=== PATIENT | female | born 1960 | race Caucasian/White ===

== ENCOUNTER 2019-11-16 02:06 | Emergency (ER) | payer SELFPAY ==
--- NOTE | 2019-11-16 02:31 | EDM.PDOC ---
ED HPI GENERAL MEDICAL PROBLEM - General Chief Complaint: Abdominal Pain Stated Complaint: RUQ PAIN Time Seen by Provider: 11/16/19 02:20 Source of Information: Reports: Patient, RN, RN Notes Reviewed History Limitations: Reports: No Limitations - History of Present Illness INITIAL COMMENTS - FREE TEXT/NARRATIVE: Patient presents to ER with c/o severe abdominal pain. Patient states she has had gallbladder problems for the past 10 years. Patient reported to nursing staff that she was told by a chiropractor that she had gallbladder issues. She has been using a 'home remedy" for gallstones: lemon juice, olive oil, and coke mixed together and drank, followed by mag citrate. Patient states she took all of these things and has not been able to have a bowel movement. States she began vomiting about 6pm. States the pain in her stomach as been progressively getting worse. Patient states she has had a hernia surgery in the past. States she currently takes lisinopril, levothyroxine, and propranolol. Patient states she has been doctoring for her high blood pressure. Patient admits to chills and hot flashes, N/V. Denies diarrhea. Patient states difficult to take a deep breath due to the pain. Onset: Today Abdominal Pain Pain Score (Numeric/FACES): 9 - Related Data Allergies Allergy/AdvReac Type Severity Reaction Status Date / Time seasonal Allergy Sneezing Uncoded 11/16/19 04:06 Home Meds: Home Meds . [Unable to Verify Home Med List] 11/16/19 [History] ED ROS GENERAL - Review of Systems Review Of Systems: Comprehensive ROS is negative, except as noted in HPI. ED EXAM, GI/ABD - Physical Exam Exam: See Below Exam Limited By: No Limitations General Appearance: Alert, WD/WN, Moderate Distress Eyes: Bilateral: Normal Appearance, EOMI Ears: Normal External Exam, Hearing Grossly Normal Nose: Normal Inspection Throat/Mouth: Normal Inspection, Normal Voice, No Airway Compromise Head: Atraumatic, Normocephalic Neck: Normal Inspection, Supple, Non-Tender, Full Range of Motion Respiratory/Chest: No Respiratory Distress, No Accessory Muscle Use, Chest Non- Tender, Decreased Breath Sounds Cardiovascular: Normal Peripheral Pulses, Regular Rate, Rhythm, No Edema, No Gallop, No JVD, No Murmur, No Rub GI/Abdominal Exam: Guarding, Rigid, Tender (diffuse), Abnormal Bowel Sounds (hypoactive) (Female) Exam: Deferred Rectal (Female) Exam: Deferred Back Exam: Normal Inspection, Full Range of Motion, NT Extremities: Normal Inspection, Normal Range of Motion, Non-Tender, Normal Capillary Refill, No Pedal Edema Neurological: Alert, Oriented, CN II-XII Intact, Normal Cognition, Normal Gait, Normal Reflexes, No Motor/Sensory Deficits Psychiatric: Normal Affect, Normal Mood, Anxious Skin Exam: Warm, Dry, Intact, Normal Color, No Rash Lymphatic: No Adenopathy Course - Vital Signs Last Recorded V/S: Last Vital Signs Temp 97.9 F 11/16/19 02:10 Pulse 56 L 11/16/19 02:10 Resp 18 11/16/19 02:10 BP 233/111 H 11/16/19 02:10 Pulse Ox 99 11/16/19 02:10 - Orders/Labs/Meds Orders: Active Orders 24 hr Category Date Time Status Gastrointestinal Tube Mgmt [RC] ASDIRECTED Care 11/16/19 05:01 Active Abdomen 1V Upright [CR] Stat Exams 11/16/19 05:01 Ordered Abdomen Pelvis w Cont [CT] Stat Exams 11/16/19 03:37 Taken Chest 1V Frontal [CR] Stat Exams 11/16/19 05:01 Ordered NG [Nasogastric Orogastric Tube Insertion] [OM.PC] Oth 11/16/19 05:01 Ordered Routine Labs: Laboratory Tests 11/16/19 11/16/19 11/16/19 Range/Units 02:40 03:08 03:08 WBC 14.6 H (4.0-10.0) x10^3/uL RBC 5.82 H (4.00-5.50) x10^6/uL Hgb 18.2 H (12.0-16.0) g/dL Hct 51.0 H (33.0-47.0) % MCV 87.6 (78.0-93.0) fL MCH 31.3 (26.0-32.0) pg MCHC 35.7 (32.0-36.0) g/dL RDW Coeff of Marcie 13.0 (10.0-15.0) % Plt Count 343 (130-400) x10^3/uL Neut % (Auto) 91.2 H (50.0-80.0) % Lymph % (Auto) 5.3 L (25.0-50.0) % [place] % (Auto) 3.4 (2.0-11.0) % Eos % (Auto) 0.0 (0.0-4.0) % Baso % (Auto) 0.1 L (0.2-1.2) % Sodium 129 L* (136-145) mmol/L Potassium 4.3 (3.5-5.1) mmol/L Chloride 94 L (98-107) mmol/L Carbon Dioxide 23 (21-32) mmol/L Anion Gap 16.3 (10-20) mmol/L BUN 12 (7-18) mg/dL Creatinine 0.9 (0.55-1.02) mg/dL Est Cr Clr Drug Dosing TNP Estimated GFR (MDRD) > 60 Glucose 179 H (74-106) mg/dL Lactic Acid 1.1 (0.4-2.0) mmol/L Calcium 9.8 (8.5-10.1) mg/dL Corrected Calcium 9.56 (8.5-10.1) mg/dL Total Bilirubin 0.8 (0.2-1.0) mg/dL AST 23 (15-37) U/L ALT 25 (14-59) U/L Alkaline Phosphatase 134 H (46-116) U/L Total Protein 8.9 H (6.4-8.2) g/dL Albumin 4.3 (3.4-5.0) g/dL Globulin 4.6 Albumin/Globulin Ratio 0.93 Amylase 57 (25-115) U/L Lipase 154 (73-393) U/L Urine Color (YELLOW) Urine Appearance (CLEAR) Urine pH (5.0-8.0) Ur Specific [place] Urine Protein (NEGATIVE) mg/dL Urine Glucose (UA) (NEGATIVE) mg/dL Urine Ketones (NEGATIVE) mg/dL Urine Occult Blood (NEGATIVE) Urine Nitrite (NEGATIVE) Urine Bilirubin (NEGATIVE) Urine Urobilinogen (0.2) EU/dL Ur Leukocyte Esterase (NEGATIVE) U Hyaline Cast (Auto) Urine RBC (NOT SEEN) /HPF Urine WBC (NOT SEEN) /HPF Ur Squamous Epith Cells (NEGATIVE) /HPF Amorphous Sediment Urine Bacteria (NEGATIVE) /HPF Urine Mucus (NEGATIVE) /LPF SARS CoV-2 RNA Rapid NEAL (NEGATIVE) 11/16/19 11/16/19 Range/Units 03:40 05:47 WBC (4.0-10.0) x10^3/uL RBC (4.00-5.50) x10^6/uL Hgb (12.0-16.0) g/dL Hct (33.0-47.0) % MCV (78.0-93.0) fL MCH (26.0-32.0) pg MCHC (32.0-36.0) g/dL RDW Coeff of Marcie (10.0-15.0) % Plt Count (130-400) x10^3/uL Neut % (Auto) (50.0-80.0) % Lymph % (Auto) (25.0-50.0) % [place] % (Auto) (2.0-11.0) % Eos % (Auto) (0.0-4.0) % Baso % (Auto) (0.2-1.2) % Sodium (136-145) mmol/L Potassium (3.5-5.1) mmol/L Chloride (98-107) mmol/L Carbon Dioxide (21-32) mmol/L Anion Gap (10-20) mmol/L BUN (7-18) mg/dL Creatinine (0.55-1.02) mg/dL Est Cr Clr Drug Dosing Estimated GFR (MDRD) Glucose (74-106) mg/dL Lactic Acid (0.4-2.0) mmol/L Calcium (8.5-10.1) mg/dL Corrected Calcium (8.5-10.1) mg/dL Total Bilirubin (0.2-1.0) mg/dL AST (15-37) U/L ALT (14-59) U/L Alkaline Phosphatase (46-116) U/L Total Protein (6.4-8.2) g/dL Albumin (3.4-5.0) g/dL Globulin Albumin/Globulin Ratio Amylase (25-115) U/L Lipase (73-393) U/L Urine Color Yellow (YELLOW) Urine Appearance Cloudy H (CLEAR) Urine pH 6.0 (5.0-8.0) Ur Specific [place] >=1.030 Urine Protein >=300 H (NEGATIVE) mg/dL Urine Glucose (UA) 100 H (NEGATIVE) mg/dL Urine Ketones 15 H (NEGATIVE) mg/dL Urine Occult Blood Small H (NEGATIVE) Urine Nitrite Negative (NEGATIVE) Urine Bilirubin Small H (NEGATIVE) Urine Urobilinogen 0.2 (0.2) EU/dL Ur Leukocyte Esterase Negative (NEGATIVE) U Hyaline Cast (Auto) Moderate Urine RBC 5-10 H (NOT SEEN) /HPF Urine WBC 0-5 (NOT SEEN) /HPF Ur Squamous Epith Cells Many H (NEGATIVE) /HPF Amorphous Sediment Few Urine Bacteria Not seen (NEGATIVE) /HPF Urine Mucus Few H (NEGATIVE) /LPF SARS CoV-2 RNA Rapid NEAL Negative (NEGATIVE) Meds: Medications Discontinued Medications Generic Name Dose Route Start Last Admin Trade Name Freq PRN Reason Stop Dose Admin Fentanyl 50 mcg 11/16/19 03:29 11/16/19 03:33 Sublimaze IVPUSH 11/16/19 03:30 50 mcg ONETIME ONE Administration Fentanyl 50 mcg 11/16/19 05:00 11/16/19 05:09 Sublimaze IVPUSH 11/16/19 05:01 50 mcg ONETIME ONE Administration Hydromorphone HCl 0.5 mg 11/16/19 02:34 11/16/19 02:46 Dilaudid IVPUSH 11/16/19 02:35 0.5 mg ONETIME ONE Administration Hydromorphone HCl 1 mg 11/16/19 05:58 11/16/19 06:01 Dilaudid IVPUSH 11/16/19 05:59 1 mg ONETIME ONE Administration Sodium Chloride 1,000 mls @ 999 mls/hr 11/16/19 02:34 11/16/19 02:46 Normal Saline IV 11/16/19 03:34 999 mls/hr ONETIME ONE Administration Sodium Chloride 1,000 mls @ 999 mls/hr 11/16/19 04:36 11/16/19 04:38 Normal Saline IV 11/16/19 05:36 999 mls/hr ONETIME ONE Administration Iopamidol 100 ml 11/16/19 03:37 11/16/19 04:06 Isovue-300 (61%) IVPUSH 11/16/19 03:38 100 ml ONETIME ONE Administration Iopamidol 100 ml 11/16/19 04:05 11/16/19 05:13 Isovue-300 (61%) IVPUSH 11/16/19 04:06 Not Given ONETIME ONE Labetalol HCl 20 mg 11/16/19 04:50 11/16/19 04:56 Normodyne IVPUSH 11/16/19 04:51 20 mg NOW ONE Administration Protocol Labetalol HCl 20 mg 11/16/19 06:45 Normodyne IVPUSH 11/16/19 06:46 NOW ONE Protocol Ondansetron HCl 4 mg 11/16/19 02:49 11/16/19 02:58 Zofran IV 11/16/19 02:50 4 mg ONETIME ONE Administration - Radiology Interpretation Free Text/Narrative:: CT Abdomen/Pelvis with contrast: Cecal colculus resulting in bowel obstruction. 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 See rad report - Re-Assessments/Exams Free Text/Narrative Re-Assessment/Exam: 11/16/19 05:54 0501 [facility] called to transfer patient. States they are on diversion and cannot accept General medical or surgical patients at this time. 0503 [facility] called. Also on diversion. Only accepting STEMI's, Strokes, and traumas. Discussed case with DR. Richardson who states he suggests I look elsewhere for transfer. [facility] say that they would call back when a room was available in case we were unable to get the patient transferred elsewhere. 0510 [facility] called. [facility] states they have just come off diversion. State they will be able to take the patient if she is COVID negative. A rapid COVID test performed. Rapid COVID is negative. When [facility] was called back they stated that they had many patients in the ER that they had to place, so were unable to take the patient at this time. [address] Hammonds, hospitalist states the patient's BP is too high and must go through the ER. Dr. Chappell at accepted the patient for transfer. Patient will be transferred via [facility] to [place]. Departure - Departure Time of Disposition: 06:54 Disposition: DC/Tfer to Acute Hospital 02 Condition: Fair, Serious Clinical Impression: Cecal volvulus, Superior mesenteric artery stenosis Bowel obstruction Qualifiers: Intestinal obstruction type: volvulus Qualified Code(s): K56.2 - Volvulus - Discharge Information *PRESCRIPTION DRUG MONITORING PROGRAM REVIEWED*: No *COPY OF PRESCRIPTION DRUG MONITORING REPORT IN PATIENT KALINA: No Referrals: Andreea Martin MD [Primary Care Provider] - Forms: ED Department Discharge, Interfacility Transfer PAMELA Sepsis Event Note (ED) - Focused Exam Vital Signs: Vital Signs Temp Pulse Resp BP Pulse Ox 11/16/19 02:10 97.9 F 56 L 18 233/111 H 99 - My Orders Last 24 Hours: My Active Orders 11/16/19 03:37 Abdomen Pelvis w Cont [CT] Stat 11/16/19 05:01 Gastrointestinal Tube Mgmt [RC] ASDIRECTED Abdomen 1V Upright [CR] Stat Chest 1V Frontal [CR] Stat NG [Nasogastric Orogastric Tube Insertion] [OM.PC] Routine - Assessment/Plan Last 24 Hours: My Active Orders 11/16/19 03:37 Abdomen Pelvis w Cont [CT] Stat 11/16/19 05:01 Gastrointestinal Tube Mgmt [RC] ASDIRECTED Abdomen 1V Upright [CR] Stat Chest 1V Frontal [CR] Stat NG [Nasogastric Orogastric Tube Insertion] [OM.PC] Routine
[2019-11-16] MEDS ORDERED: Sodium Chloride 0.9% 1,000 ML IV ONE ×2 (02:34→04:36)
[2019-11-16] MEDS ORDERED: HYDROmorphone 0.5 MG/0.5 ML Syringe IVPUSH ONE (02:34)
[2019-11-16] MEDS ORDERED: Ondansetron 4 MG/2 ML SDV IV ONE (02:49)
[2019-11-16] MEDS ORDERED: fentaNYL 100 MCG/2 ML SDV IVPUSH ONE ×2 (03:29→05:00)
[2019-11-16 03:32] LABS: CHLORIDE,CL 94 mmol/L (98-107)
[2019-11-16 03:35] LABS: ANION GAP 16.3 mmol/L (10-20); SODIUM,NA 129 mmol/L (136-145)
[2019-11-16] MEDS ORDERED: Iopamidol 612 MG/ML 100 ML Bottle IVPUSH ONE ×2 (03:37→04:05)
[2019-11-16] MEDS ORDERED: Labetalol 20 MG/4 ML Syringe IVPUSH ONE ×2 (04:50→06:45)
[2019-11-16] MEDS ORDERED: HYDROmorphone 1 MG/ML Syringe IVPUSH ONE (05:58)
--- NOTE | 2019-11-16 09:10 | CT ---
[id number] CT/CT Abdomen Pelvis W IV EXAM: CT Abdomen Pelvis W IV CLINICAL DATA: ABDOMINAL PAIN COMPARISON: NO PREVIOUS SIMILAR EXAM IS AVAILABLE. FINDINGS: There is cecal volvulus resulting in small bowel obstruction The cecum measures 11 cm in greatest diameter. There appears to be minimal free air. 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
== END 2019-11-16 08:11 | disposition short-term general hospital (02) ==
LOC: VM.ED 02:06
DX: K56.2 Volvulus (principal); K55.1 Chronic vascular disorders of intestine; Z20.828 Contact with and (suspected) exposure to other viral communicable diseases; Z88.8 Allergy status to other drugs, medicaments and biological substances
CPT/HCPCS: 36415; 74177; 80053; 81001; 82150; 83605; 83690; 85025; 87635; 96361; 96374; 96375; 96376; 99285; J1170; J2405; J3010; J3490; J7030; Q9967; 99284; U0002

== ENCOUNTER 2020-10-16 18:47 | Inpatient (IN) | payer MEDICAID, OTHER ==
[2020-10-16] MEDS ORDERED: HYDROmorphone 0.5 MG/0.5 ML Syringe IV ONE ×2 (19:06→21:36)
[2020-10-16] MEDS ORDERED: Sodium Chloride 0.9% 10 ML Syringe FLUSH PRN (19:06)
[2020-10-16] MEDS ORDERED: Ondansetron 4 MG/2 ML SDV IV ONE (19:06)
[2020-10-16] MEDS ORDERED: Lactated Ringers 1,000 ML IV ONE (19:06)
[2020-10-16] MEDS ORDERED: diphenhydrAMINE 50 MG/ML SDV IVPUSH ONE (19:06)
--- NOTE | 2020-10-16 19:15 | EDM.PDOC ---
ED HPI GENERAL MEDICAL PROBLEM - General Chief Complaint: Abdominal Pain Stated Complaint: ABDOMINAL PAIN Time Seen by Provider: 10/16/20 19:10 Source of Information: Reports: Patient History Limitations: Reports: No Limitations - History of Present Illness INITIAL COMMENTS - FREE TEXT/NARRATIVE: Comes emergency department today from home with complaints of severe onset of mid abdominal pain. Patient has a history of what she reports as a twisted bowel that she had surgery in [place] about 1 year ago. She also had a hernia repair in the right lower quadrant where she had her appendix removed. She has had no other surgeries in her abdomen. She has felt well the past couple of days. Today after lunch eating a rather large lunch she had a rather abrupt sudden onset of abdominal pain nausea and vomiting. She did have a bowel movement earlier today. No fever no chills. No hematuria dysuria urinary frequency. No black or tarry stools. Middle Abdomen Pain Score (Numeric/FACES): 9 - Related Data Allergies Allergy/AdvReac Type Severity Reaction Status Date / Time seasonal Allergy Sneezing Uncoded 10/16/20 19:06 Home Meds: Home Meds Levothyroxine 75 mcg PO ACBREAKFAST 10/16/20 [History] Propranolol [Inderal LA 24 Hr] 80 mg PO BID 10/16/20 [History] lisinopriL [Lisinopril] 2.5 mg PO DAILY 10/16/20 [History] Past Medical History Cardiovascular History: Reports: Hypertension Gastrointestinal History: Reports: Bowel Obstruction ED ROS GENERAL - Review of Systems Review Of Systems: Comprehensive ROS is negative, except as noted in HPI. ED EXAM, GI/ABD - Physical Exam Exam: See Below Exam Limited By: No Limitations General Appearance: Alert, WD/WN, Moderate Distress Eyes: Bilateral: EOMI Ears: Normal External Exam Nose: Normal Inspection Throat/Mouth: Normal Inspection Head: Atraumatic, Normocephalic Neck: Normal Inspection, Supple, Non-Tender Respiratory/Chest: No Respiratory Distress, Lungs Clear, Normal Breath Sounds, No Accessory Muscle Use, Chest Non-Tender Cardiovascular: Normal Peripheral Pulses, Regular Rate, Rhythm, No Murmur GI/Abdominal Exam: Guarding (Throughout the abdomen.), Rigid (Moderate rigidity), Rebound (Throughout), Tender, Abnormal Bowel Sounds (Hyperactive), Hernia (There is a transverse hernia of the midline just below the umbilicus. This is soft. Quite tender.). No: Soft (Semifirm), Mass (Female) Exam: Deferred Back Exam: Normal Inspection, Full Range of Motion Extremities: Normal Inspection, Normal Range of Motion, Non-Tender, No Pedal Edema, Normal Capillary Refill Neurological: Alert, Oriented, Normal Cognition, No Motor/Sensory Deficits Psychiatric: Normal Affect, Normal Mood Skin Exam: Warm, Dry, Intact, Normal Color, No Rash Course - Vital Signs Last Recorded V/S: Last Vital Signs Temp 97.2 F 10/16/20 18:55 Pulse 54 L 10/16/20 18:55 Resp 16 10/16/20 18:55 BP 214/87 H 10/16/20 18:55 Pulse Ox 100 10/16/20 18:55 - Orders/Labs/Meds Orders: Active Orders 24 hr Category Date Time Status Gastrointestinal Tube Mgmt [RC] ASDIRECTED Care 10/16/20 20:46 Active Abdomen 1V Upright [CR] Stat Exams 10/16/20 20:46 Taken CULTURE URINE [RM] Stat Lab 10/16/20 19:45 Received Sodium Chloride 0.9% [Saline Flush] Med 10/16/20 19:06 Active 10 ml FLUSH ASDIRECTED PRN Nasogastric Orogastric Tube Insertion [OM.PC] Routine Oth 10/16/20 20:46 Ordered Peripheral IV Insertion Adult [OM.PC] Stat Oth 10/16/20 19:06 Ordered Medication Orders Enoxaparin Sodium (Enoxaparin 40 Mg/0.4 Ml Syringe) 40 mg SUBCUT Q24H LUIS ANGEL Flumazenil (Flumazenil 0.1 Mg/Ml 5 Ml Mdv) 0.2 mg IVPUSH ASDIRECTED PRN PRN Reason: Respiratory Depression Hydromorphone HCl (Hydromorphone 1 Mg/Ml Syringe) 0.5 mg IVPUSH Q3H PRN PRN Reason: Pain Sodium Chloride (Normal Saline) 1,000 mls @ 125 mls/hr IV ASDIRECTED LUIS ANGEL Lorazepam (Lorazepam 2 Mg/Ml Sdv) 0.5 mg IVPUSH Q4H PRN PRN Reason: Anxiety Metoclopramide HCl (Metoclopramide 10 Mg/2 Ml Sdv) 5 mg IVPUSH Q4H PRN PRN Reason: Nausea Ondansetron HCl (Ondansetron 4 Mg/2 Ml Sdv) 4 mg IVPUSH Q6H PRN PRN Reason: Nausea Sodium Chloride (Sodium Chloride 0.9% 10 Ml Syringe) 10 ml FLUSH ASDIRECTED PRN PRN Reason: Keep Vein Open Labs: Laboratory Tests 10/16/20 10/16/20 10/16/20 Range/Units 19:19 19:19 19:19 WBC 14.0 H (4.0-10.0) x10^3/uL RBC 5.59 H (4.00-5.50) x10^6/uL Hgb 17.3 H (12.0-16.0) g/dL Hct 49.1 H (33.0-47.0) % MCV 87.8 (78.0-93.0) fL MCH 30.9 (26.0-32.0) pg MCHC 35.2 (32.0-36.0) g/dL RDW Coeff of Marcie 12.7 (10.0-15.0) % Plt Count 347 (130-400) x10^3/uL Immature Gran % (Auto) 0.20 (0.00-0.43) % Neut % (Auto) 80.1 H (50.0-80.0) % Lymph % (Auto) 12.7 L (25.0-50.0) % [place] % (Auto) 5.6 (2.0-11.0) % Eos % (Auto) 1.0 (0.0-4.0) % Baso % (Auto) 0.4 (0.2-1.2) % Neut # (Auto) 11.3 H (1.8-7.7) x10^3/uL Lymph # (Auto) 1.8 (1.0-4.8) x10^3/uL [place] # (Auto) 0.8 (0.0-0.8) x10^3/uL Eos # (Auto) 0.1 (0.0-0.5) x10^3/uL Baso # (Auto) 0.1 (0.0-0.2) x10^3/uL Immature Gran # (Auto) 0.03 (0.00-0.07) x10^3/uL Sodium 129 L* (136-145) mmol/L Potassium 4.3 (3.5-5.1) mmol/L Chloride 94 L (98-107) mmol/L Carbon Dioxide 28 (21-32) mmol/L Anion Gap 11.3 (5-15) mmol/L BUN 15 (7-18) mg/dL Creatinine 0.7 (0.55-1.02) mg/dL Est Cr Clr Drug Dosing TNP Estimated GFR (MDRD) > 60 Glucose 117 H (70-99) mg/dL Lactic Acid 1.3 (0.4-2.0) mmol/L Calcium 10.2 H (8.5-10.1) mg/dL Corrected Calcium 10.2 H (8.5-10.1) mg/dL Total Bilirubin 1.0 (0.2-1.0) mg/dL AST 31 (15-37) U/L ALT 23 (14-59) U/L Alkaline Phosphatase 117 H (46-116) U/L C-Reactive Protein < 0.2 (<=0.9) mg/dL Total Protein 8.2 (6.4-8.2) g/dL Albumin 4.0 (3.4-5.0) g/dL Globulin 4.2 Albumin/Globulin Ratio 0.95 Lipase 148 (73-393) U/L Urine Color (YELLOW) Urine Appearance (CLEAR) Urine pH (5.0-8.0) Ur Specific [place] Urine Protein (NEGATIVE) mg/dL Urine Glucose (UA) (NEGATIVE) mg/dL Urine Ketones (NEGATIVE) mg/dL Urine Occult Blood (NEGATIVE) Urine Nitrite (NEGATIVE) Urine Bilirubin (NEGATIVE) Urine Urobilinogen (0.2) EU/dL Ur Leukocyte Esterase (NEGATIVE) Urine RBC (NOT SEEN) /HPF Urine WBC (NOT SEEN) /HPF Ur Squamous Epith Cells (NOT SEEN) /HPF Amorphous Sediment Urine Bacteria (NOT SEEN) /HPF Urine Mucus (NOT SEEN) /LPF Ethyl Alcohol (0-3) mg/dL SARS CoV-2 RNA Rapid NEAL (NEGATIVE) 10/16/20 10/16/20 10/16/20 Range/Units 19:19 19:45 19:50 WBC (4.0-10.0) x10^3/uL RBC (4.00-5.50) x10^6/uL Hgb (12.0-16.0) g/dL Hct (33.0-47.0) % MCV (78.0-93.0) fL MCH (26.0-32.0) pg MCHC (32.0-36.0) g/dL RDW Coeff of Marcie (10.0-15.0) % Plt Count (130-400) x10^3/uL Immature Gran % (Auto) (0.00-0.43) % Neut % (Auto) (50.0-80.0) % Lymph % (Auto) (25.0-50.0) % [place] % (Auto) (2.0-11.0) % Eos % (Auto) (0.0-4.0) % Baso % (Auto) (0.2-1.2) % Neut # (Auto) (1.8-7.7) x10^3/uL Lymph # (Auto) (1.0-4.8) x10^3/uL [place] # (Auto) (0.0-0.8) x10^3/uL Eos # (Auto) (0.0-0.5) x10^3/uL Baso # (Auto) (0.0-0.2) x10^3/uL Immature Gran # (Auto) (0.00-0.07) x10^3/uL Sodium (136-145) mmol/L Potassium (3.5-5.1) mmol/L Chloride (98-107) mmol/L Carbon Dioxide (21-32) mmol/L Anion Gap (5-15) mmol/L BUN (7-18) mg/dL Creatinine (0.55-1.02) mg/dL Est Cr Clr Drug Dosing Estimated GFR (MDRD) Glucose (70-99) mg/dL Lactic Acid (0.4-2.0) mmol/L Calcium (8.5-10.1) mg/dL Corrected Calcium (8.5-10.1) mg/dL Total Bilirubin (0.2-1.0) mg/dL AST (15-37) U/L ALT (14-59) U/L Alkaline Phosphatase (46-116) U/L C-Reactive Protein (<=0.9) mg/dL Total Protein (6.4-8.2) g/dL Albumin (3.4-5.0) g/dL Globulin Albumin/Globulin Ratio Lipase (73-393) U/L Urine Color Yellow (YELLOW) Urine Appearance Clear (CLEAR) Urine pH 7.0 (5.0-8.0) Ur Specific [place] 1.020 Urine Protein 30 H (NEGATIVE) mg/dL Urine Glucose (UA) Negative (NEGATIVE) mg/dL Urine Ketones Negative (NEGATIVE) mg/dL Urine Occult Blood Trace-intact H (NEGATIVE) Urine Nitrite Negative (NEGATIVE) Urine Bilirubin Negative (NEGATIVE) Urine Urobilinogen 0.2 (0.2) EU/dL Ur Leukocyte Esterase Trace H (NEGATIVE) Urine RBC 0-5 (NOT SEEN) /HPF Urine WBC 0-5 (NOT SEEN) /HPF Ur Squamous Epith Cells Few H (NOT SEEN) /HPF Amorphous Sediment Occasional Urine Bacteria Rare (NOT SEEN) /HPF Urine Mucus Rare H (NOT SEEN) /LPF Ethyl Alcohol < 3 (0-3) mg/dL SARS CoV-2 RNA Rapid NEAL Negative (NEGATIVE) Meds: Medications Generic Name Dose Route Start Last Admin Trade Name Freq PRN Reason Stop Dose Admin Enoxaparin Sodium 40 mg 10/17/20 20:00 Enoxaparin 40 Mg/0.4 Ml Syringe SUBCUT Q24H LUIS ANGEL Flumazenil 0.2 mg 10/16/20 22:23 Flumazenil 0.1 Mg/Ml 5 Ml Mdv IVPUSH ASDIRECTED PRN Respiratory Depression Hydromorphone HCl 0.5 mg 10/16/20 22:09 Hydromorphone 1 Mg/Ml Syringe IVPUSH Q3H PRN Pain Sodium Chloride 1,000 mls @ 125 mls/hr 10/16/20 22:15 Normal Saline IV ASDIRECTED LUIS ANGEL Lorazepam 0.5 mg 10/16/20 22:23 Lorazepam 2 Mg/Ml Sdv IVPUSH Q4H PRN Anxiety Metoclopramide HCl 5 mg 10/16/20 22:10 Metoclopramide 10 Mg/2 Ml Sdv IVPUSH Q4H PRN Nausea Ondansetron HCl 4 mg 10/16/20 22:09 Ondansetron 4 Mg/2 Ml Sdv IVPUSH Q6H PRN Nausea Sodium Chloride 10 ml 10/16/20 19:06 Sodium Chloride 0.9% 10 Ml Syringe FLUSH ASDIRECTED PRN Keep Vein Open Discontinued Medications Generic Name Dose Route Start Last Admin Trade Name Cipriano PRN Reason Stop Dose Admin Diphenhydramine HCl 25 mg 10/16/20 19:06 10/16/20 19:35 Diphenhydramine 50 Mg/Ml Sdv IVPUSH 10/16/20 19:07 25 mg ONETIME ONE Administration Hydromorphone HCl 0.5 mg 10/16/20 19:06 10/16/20 19:33 Hydromorphone 0.5 Mg/0.5 Ml Syringe IV 10/16/20 19:07 0.5 mg ONETIME ONE Administration Hydromorphone HCl 0.5 mg 10/16/20 21:36 10/16/20 21:42 Hydromorphone 0.5 Mg/0.5 Ml Syringe IV 10/16/20 21:37 0.5 mg ONETIME ONE Administration Lactated Ringer's 1,000 mls @ 999 mls/hr 10/16/20 19:06 10/16/20 19:30 Ringers, Lactated IV 10/16/20 20:06 999 mls/hr ONETIME ONE Administration Iopamidol 100 ml 10/16/20 20:05 10/16/20 20:27 Iopamidol 612 Mg/Ml 100 Ml Bottle IVPUSH 10/16/20 20:06 100 ml ONETIME ONE Administration Lidocaine HCl 11 ml 10/16/20 20:49 10/16/20 21:00 Lidocaine 2% Hcl 11 Ml Jelly Filled Syringe MUCMEM 10/16/20 20:50 11 ml ONETIME ONE Administration Ondansetron HCl 4 mg 10/16/20 19:06 10/16/20 19:31 Ondansetron 4 Mg/2 Ml Sdv IV 10/16/20 19:07 4 mg ONETIME ONE Administration - Radiology Interpretation Free Text/Narrative:: CT abdomen pelvis with contrast per radiology shows multiple dilated loops of bowel throughout the abdomen. Transition point consistent with small bowel obstruction. No volvulus. Chest x-ray after NG placement initially reviewed extemporaneously by myself shows good placement of the NG tube in the gastric antrum most likely. Clearly past the diaphragm. Radiological review to follow. - Re-Assessments/Exams Free Text/Narrative Re-Assessment/Exam: 09/09/21 19:15 IV was established labs are drawn. 1 L LR wide open. Dilaudid 0.5 mg IV push. Zofran 4 mg IV push. Benadryl [address] abdomen pelvis with contrast ordered. Mild elevation of her white blood cell count 14.0, her hemoglobin is 17.3 most likely due to dehydration. Platelet count normal at 347. Her sodium is 129 which is chronic. Potassium 4.3. Normal creatinine. Glucose 117. Alkaline phosphatase 111 CRP less than 0.2. Lipase normal at 148. Urinalysis with some protein and trace blood trace leukocyte esterase you WBCs is negative. Alcohol is negative. Covid is negative. Due to the concerns initially reviewed extemporaneously by myself of the CT scan of the abdomen which clearly shows multiple dilated loops of bowel I discussed with the patient the placement of a nasogastric tube to low continuous suction while in the emergency department. Risk and benefits were explained. Patient consented. NG to low intermittent suction with about 350 mils out in the emergency department. Patient tolerated the procedure well. Postplacement chest x-ray in appropriate position. Patient reports that she had a small bowel obstruction about 1 year ago where she needed surgery for it. I discussed this patient with Dr. Maria C Connell here in [place] about admission for small bowel obstruction. I also discussed with Dr. Silverio Hastings at [facility] in [place] due to the concerns of past history of needing surgery. At this time she is not requiring surgery so we will treat her medically here. If she gets worse by any means or shows any deterioration they will accept her in transfer at that time. The patient had quite a bit of improvement with her pain with the above therapy. I discussed with her the plan of care. She was comfortable with this plan and her questions are answered. Dr. Maria C Connell came and saw this patient in the emergency department. Departure - Departure Time of Disposition: 09:30 Disposition: Admitted As Inpatient 64 Clinical Impression: Small bowel obstruction, Hyponatremia - Discharge Information Sepsis Event Note (ED) - Focused Exam Vital Signs: Vital Signs Temp Pulse Resp BP Pulse Ox 10/16/20 18:55 97.2 F 54 L 16 214/87 H 100 - My Orders Last 24 Hours: My Active Orders 10/16/20 19:06 Sodium Chloride 0.9% [Saline Flush] 10 ml FLUSH ASDIRECTED PRN Peripheral IV Insertion Adult [OM.PC] Stat 10/16/20 19:45 CULTURE URINE [RM] Stat 10/16/20 20:46 Gastrointestinal Tube Mgmt [RC] ASDIRECTED Abdomen 1V Upright [CR] Stat Nasogastric Orogastric Tube Insertion [OM.PC] Routine - Assessment/Plan Last 24 Hours: My Active Orders 10/16/20 19:06 Sodium Chloride 0.9% [Saline Flush] 10 ml FLUSH ASDIRECTED PRN Peripheral IV Insertion Adult [OM.PC] Stat 10/16/20 19:45 CULTURE URINE [RM] Stat 10/16/20 20:46 Gastrointestinal Tube Mgmt [RC] ASDIRECTED Abdomen 1V Upright [CR] Stat Nasogastric Orogastric Tube Insertion [OM.PC] Routine
[2020-10-16 19:59] LABS: CHLORIDE,CL 94 mmol/L (98-107)
[2020-10-16] MEDS ORDERED: Iopamidol 612 MG/ML 100 ML Bottle IVPUSH ONE (20:05)
[2020-10-16 20:07] LABS: ANION GAP 11.3 mmol/L (5-15); SODIUM,NA 129 mmol/L (136-145)
[2020-10-16] MEDS ORDERED: Lidocaine 2% HCl 11 ML Jelly Filled Syringe MUCMEM ONE (20:49)
--- NOTE | 2020-10-16 20:54 | CT ---
[id number] CT/CT Abdomen Pelvis W IV EXAM: CT Abdomen Pelvis W IV CLINICAL DATA: ABD PAIN, HX SBO COMPARISON STUDY: 11/16/2019. FINDINGS: Dependent atelectasis at the lung bases bilaterally. Liver, spleen, gallbladder, pancreas, adrenal glands, and kidneys are unremarkable. Post surgical changes involving the right colon. Multiple fluid distended loops of small bowel measuring up to 3.9 cm. There is a transition point within the right lower quadrant. No free fluid, free air or fluid collection. No lymphadenopathy, free fluid, or pneumoperitoneum. Multiple calcified fibroids. Scattered changes of spondylosis the spine. No fracture or osseous lesion. IMPRESSION: 1. Multiple fluid distended loops of small bowel with transition point the right lower quadrant. Findings are consistent with small bowel obstruction. No free fluid, free air or fluid collection at this time. Rigoberto Barroso DO 10/16/202052 Thank you for allowing us to participate in the care of your patient.
[2020-10-16] MEDS ORDERED: HYDROmorphone 1 MG/ML Syringe IVPUSH PRN (22:09)
[2020-10-16] MEDS ORDERED: Ondansetron 4 MG/2 ML SDV IVPUSH PRN (22:09)
[2020-10-16] MEDS ORDERED: Metoclopramide 10 MG/2 ML SDV IVPUSH PRN (22:10)
[2020-10-16] MEDS ORDERED: Sodium Chloride 0.9% 1,000 ML IV SCH (22:15)
[2020-10-16] MEDS ORDERED: LORazepam 2 MG/ML SDV IVPUSH PRN (22:23)
[2020-10-16] MEDS ORDERED: Flumazenil 0.1 MG/ML 5 ML MDV IVPUSH PRN (22:23)
[2020-10-16] MEDS ORDERED: Metoprolol Tartrate 5 MG/5 ML SDV IVPUSH PRN (22:50)
[2020-10-17 06:57] LABS: CHLORIDE,CL 100 mmol/L (98-107); SODIUM,NA 134 mmol/L (136-145)
[2020-10-17 07:01] LABS: ANION GAP 10.3 mmol/L (5-15)
[2020-10-17] MEDS ORDERED: PROPRANOLOL 80 MG PO SCH (08:15)
--- NOTE | 2020-10-17 08:42 | CR ---
[id number] RAD/RAD Abdomen Upright EXAM: RAD Abdomen Upright INDICATION: CONFIRM NG/OG TUBE PLACEMENT COMPARISON: CT same date. DISCUSSION: A limited view of the lower chest and upper abdomen was performed for tube placement. Nasogastric tube tip gastric body. Residual intravenous contrast agent within urinary collecting systems. Dilated bowel loops are noted in the upper abdomen. IMPRESSION: 1. Nasogastric tube tip gastric body. Dirk Zuñiga MD 10/17/20 [id number] Thank you for allowing us to participate in the care of your patient.
--- NOTE | 2020-10-17 09:48 | CR ---
[id number] RAD/RAD Abd Flat and Upright 2V EXAM: RAD Abd Flat and Upright 2V INDICATION: SBO FOLLOW UP. COMPARISON: October 16, 2020. DISCUSSION: Nasogastric tube is in stable satisfactory position within the gastric body. Small bowel dilation of up to about 49 mm is similar to yesterday's exam. Gas-filled nondilated loops of large bowel. No free air or pneumatosis is identified. Extensive uterine calcifications. Arterial calcifications. IMPRESSION: 1. No significant interval change in small bowel dilation. Dirk Zuñiga MD 10/17/20 [id number] Thank you for allowing us to participate in the care of your patient.
[2020-10-17] MEDS: Lisinopril 2.5 MG Tab PO SCH (10:23)
[2020-10-17] MEDS: Levothyroxine 75 MCG Tab PO SCH (10:23)
[2020-10-17] MEDS: Propranolol 20 MG Tab PO SCH ×2 (10:24→19:45)
--- NOTE | 2020-10-17 13:31 | PN ---
Progress Note for DANETTE LYONS Date: 10/17/2020 Room #: VM.211 SUBJECTIVE: This is the patient's second hospital day of being hospitalized with small bowel obstruction. She was admitted last evening, had an NG tube placed. CT scan showed multiple air-fluid loops. 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 The patient did well postoperatively. She was also noted to have stenosis of her SMA, which has not been followed up. Also, she was to have had a colonoscopy done 3 months after her surgery, but that never did get completed. The patient commented that yesterday she had had a bigger meal, and had a large emesis afterwards and that is when her abdominal pain had started. Since being admitted, she has had a large bowel movement this morning and her pain has been resolved. She has been sipping clear liquids, which has gone down. She has not had pain. It is noted that her blood pressure had been quite elevated on admission, which was most likely due to pain. She has not had any of her blood pressure medications yet this morning, but she is feeling much better. The patient denies need for nicotine patch. She is eager to get up and ambulate around. OBJECTIVE: Vital Signs: Her temperature is 36.8, pulse 57, blood pressure is 175/63, respiratory rate 16, saturations are 95%. General: The patient appears comfortable, calm. Heart: Regular rate and rhythm. Lungs: Clear to auscultation. Abdomen: Bowel sounds are present. Her abdomen is soft, but it is distended. It is nontender to palpation. Her NG suction has showed much fecal type material, but now it is clear return from water she has been sipping. LABORATORY DATA: White blood cell count was 14.3, hemoglobin was 15.3, platelets are 310. She has 90.5 neutrophils, 3 lymphocytes. Sodium is improved greatly to 134; potassium 4.3; creatinine 0.8, the same. GFR greater than 60. Glucose 132. Her lactic acid on admit was normal at 1.3, not rechecked. Her calcium is 8.7, magnesium is 1.8. LFTs on admission were normal except alkaline phosphatase was slightly elevated at 117. TSH was checked, it was 4.54 with normal being 0.35 to 3.7. Urine came back normal. Alcohol level was negative. COVID test was negative. IMPRESSION: 1. Acute small bowel obstruction. 2. Superior mesenteric artery stenosis. 3. Hyponatremia, improved. 4. Hypertension. 5. Anxiety disorder. 6. Hypothyroidism. 7. Nicotine dependence. PLAN: We will clamp NG tube for 2 hours and check residual, and if no residual, then we will remove. We will check a flat and upright abdominal x-ray today, and we will allow her to have clear liquids. We will have her resume her blood pressure medications as well as her thyroid medications. Depending on how the day goes, she may be able to be discharged at the end of the day if she is able to tolerate clear liquids with no pain. If not, she will need to be kept until tomorrow, and if still present tomorrow, we will repeat lab work on the patient. If she worsens, then she will need to be transferred to a surgeon, which would be at [place], preferably in [place], otherwise [facility] who had done her previous surgery and so they would be familiar with the patient. The patient declines need for nicotine patch. GM10/17/2020 08:19:30 MODL: 10/17/2020 08:54:59 /[id number]
--- NOTE | 2020-10-17 13:31 | HP ---
HISTORY OF PRESENT ILLNESS: 59-year-old seen today with abdominal pain and vomiting. 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 She did well postop. She was able to be discharged home. She had no further problems. She had been taking it quite careful with her eating, but today, she had a larger lunch and after that, the pain came on. She could sort of feel it moving around her colon like a roller coaster. She had her cousin drive her to the ER and just as she was getting here, it was like she got car sick and vomited some, but did not vomit too much. She had an NG that went in rather easily and had 200 out, and she felt better. She also got some IV Zofran and Dilaudid 0.5 and got a repeat dose of Dilaudid and is feeling pretty comfortable now. She has not passed gas since this started, but did have a bowel movement this morning. There has not been blood on it. She was supposed to have a followup colonoscopy after her volvulus, but it does not appear that that was completed. She does not have any fevers or other infection, but had felt a little chill today. She denies any trouble breathing. She has been doing some coughing, but attributes that to allergy. She has had sinus infections in the past, but does not feel like she has any currently. She is otherwise quite healthy. Does take blood pressure medications. Blood pressure was quite elevated on arrival, 214/87. She is not having any headache. ALLERGIES: Just seasonal allergies reported. No medication allergies. MEDICATIONS: Her medication list includes lisinopril 2.5 daily, potassium 10 mEq daily, Inderal 80 mg twice daily, levothyroxine 75 mcg daily, turmeric, vitamin D, clobetasol cream as needed, and magnesium oxide. SOCIAL HISTORY: The patient works at the [employer] shop with her mother. She does smoke. She does drink alcohol like 2 beers a day while doing yard work. FAMILY HISTORY: Mother is living. She has coronary disease. Father has . He had Parkinson's. SURGICAL HISTORY: Includes the laparotomy in 11/2019 with exploratory laparotomy and ileocecectomy for volvulus. She has had a previous femoral hernia surgery on the right, breast biopsy and surgery for benign lesion. MEDICAL HISTORY: Includes the vitamin D deficiency, SVT, essential hypertension, hyperlipidemia, mitral valve prolapse, hypothyroidism, alcohol use. REVIEW OF SYSTEMS: General: There are no weight changes. HEENT: No trouble swallowing. Cardiac: No chest pain. Respiratory: No shortness of breath. She has had some cough. Abdominal: As stated in HPI with some nausea, vomiting, and pain, but had not had any constipation or diarrhea. Psych: The patient does admit to having some anxiety. Otherwise, all systems reviewed and found to be negative unless otherwise stated. PHYSICAL EXAMINATION: Vital Signs: Weight 54.4 kg, temperature 97.2, pulse is 54, blood pressure 214/87, respiratory rate 16, O2 of 100 on room air. General: She is in no acute distress. She is currently resting comfortably in her hospital bed. Heart: Regular rate and rhythm. S1, S2 without murmur. Lungs: Sounds are clear to auscultation bilaterally without crackles or wheezes. Abdomen: Positive bowel sounds, but hypoactive, especially in the right upper and lower quadrant. She has slight distention around the umbilicus, but reports this has been this way since her other surgery and she has well-healed incisions. She has a soft abdomen. It is nontender. Extremities: Warm and dry. No edema. Mental Status: Alert and orientated x3. LABORATORY DATA: Lab work done in the ER did show her to have a white count of 14, hemoglobin 17.3, platelets 347. Sodium 129, previous was 130 through the clinic. Potassium 4.3, chloride 94, bicarb 28, BUN 15, creatinine 0.7, glucose 117, lactate 1.3, calcium 10.2, bilirubin 1, AST 31, ALT 23, alkaline phosphatase 117, albumin 4. UA shows leukocyte esterase just trace, but 0 to 5 wbc's and rbc's. Alcohol negative. COVID negative. Lipase was negative. ASSESSMENT: 1. Small bowel obstruction with history of cecal volvulus. The patient currently has an NG in on low suction and she is doing well. We will continue with IV nausea and pain control overnight. [facility] has been contacted and will accept the patient if needed for surgical intervention, but decision was made to try conservative treatment first. She has distended bowel loops up to 3.9 cm of small bowel and a transition point in the right lower quadrant, but no free air or fluid. 2. Hyponatremia. This appears to be chronic, possibly worsened by some dehydration this evening and she also admits to drinking beer. We will repeat in the a.m. 3. Smoking. 4. Regular alcohol use. The patient did decline a nicotine patch. 5. Leukocytosis and high hemoglobin. This is likely related to dehydration or hemoconcentration, although the patient had good intake until she got sick earlier today. No source of infection identified. We will hold off on any antibiotics. 6. Essential hypertension. Blood pressure uncontrolled. This is likely due to her acute illness and pain. We will continue her home medications. 7. Hypothyroidism. We will check a TSH. PLAN: The patient is admitted for acute cares. We will have IV pain and nausea medications ordered. I will also order some IV Ativan as it may help her with anxiety and pain. For DVT prophylaxis, she will be placed on Lovenox. We will repeat lab work tomorrow. Dr. Martin to assume care, will transfer to a higher level of care if indicated. MKA: 10/16/2020 22:23:32 MODL: 10/17/2020 01:59:25 /[id number] DANNY
[2020-10-17] MEDS ORDERED: Enoxaparin 40 MG/0.4 ML Syringe SUBCUT SCH (20:00)
[2020-10-18] MEDS: Levothyroxine 75 MCG Tab PO SCH (06:46)
[2020-10-18] MEDS: Lisinopril 2.5 MG Tab PO SCH (08:11)
[2020-10-18 08:19] LABS: CHLORIDE,CL 99 mmol/L (98-107); SODIUM,NA 134 mmol/L (136-145)
[2020-10-18] MEDS: Propranolol 20 MG Tab PO SCH (09:06)
--- NOTE | 2020-10-18 09:09 | PCM.DCSUM1 ---
Discharge Summary - Hospital Course Brief History: Ms. Goldberg is a 59 yo female who was admitted with a small bowel obstruction after presenting to the ER for evaluation of abdominal pain and vomiting. - Discharge Data Discharge Date: 10/18/20 Discharge Disposition: Home, Self-Care 01 Condition: Stable - Referral to Home Health Primary Care Physician: Andreea Martin MD - Discharge Diagnosis/Problem(s) (1) Small bowel obstruction SNOMED Code(s): 630297079 ICD Code: K56.609 - UNSP INTESTNL OBST, UNSP TO PARTIAL VERSUS COMPLETE OBST Status: Acute Current Visit: Yes (2) Hyponatremia SNOMED Code(s): 65695996 ICD Code: E87.1 - HYPO-OSMOLALITY AND HYPONATREMIA Status: Acute Current Visit: Yes (3) Superior mesenteric artery stenosis SNOMED Code(s): 643518943 ICD Code: K55.1 - CHRONIC VASCULAR DISORDERS OF INTESTINE Status: Chronic Current Visit: Yes (4) Anxiety SNOMED Code(s): 82797002 ICD Code: F41.9 - ANXIETY DISORDER, UNSPECIFIED Status: Chronic Current Visit: Yes (5) Hypertension SNOMED Code(s): 20120820 ICD Code: I10 - ESSENTIAL (PRIMARY) HYPERTENSION Status: Chronic Current Visit: Yes Qualifiers: Hypertension type: primary hypertension Qualified Code(s): I10 - Essential (primary) hypertension (6) Hypothyroid SNOMED Code(s): 05138123 ICD Code: E03.9 - HYPOTHYROIDISM, UNSPECIFIED Status: Chronic Current Visit: Yes Qualifiers: Hypothyroidism type: acquired Qualified Code(s): E03.9 - Hypothyroidism, unspecified (7) Tobacco dependence SNOMED Code(s): 35488019 ICD Code: F17.200 - NICOTINE DEPENDENCE, UNSPECIFIED, UNCOMPLICATED Status: Chronic Current Visit: Yes - Patient Summary/Data Operative Procedure(s) Performed: none Complications: none Consults: none Labs Pending at D/C: none Recommended Follow-up Testing/Procedures: BMP with hospital follow-up Planned Operative Procedure(s) after DC: none Hospital Course: NG tube placed in the ER and patient was started on IV fluids. She had a large bowel movement overnight her first night and her symptoms completely resolved after that. Her NG tube was clamped yesterday morning, which she tolerated well. Therefore, it was removed yesterday afternoon. She has been on a clear liquid diet with no issues. No nausea, vomiting, or abdominal pain. Is having regular bowel movements and passing gas. Has been up and ambulatory without any issues. Is very interested in d/c this morning. BP elevated on admission, improved with her usual medications but still higher than normal. This is felt to be related to the hospitalization and her interest in getting home manuel. She also did have some hyponatremia that corrected well with IV fluids. I did recommend that she stay through lunch to see how she does with soft foods but she declines. She is counseled extensively on how to advance her diet today. She is not prescribed any medications because she has not needed anything for >24 hours. She will follow-up with her PCP in 1 week. She also needs a repeat BMP and follow-up regarding her SMA stenosis. - Patient Instructions Diet: Clear Liquid Diet Diet, Other: clear liquid advancing to soft advancing to low residue Activity: As Tolerated Driving: May Drive Today Showering/Bathing: May Shower Notify Provider of: Fever, Increased Pain, Nausea and/or Vomiting - Discharge Plan *PRESCRIPTION DRUG MONITORING PROGRAM REVIEWED*: No *COPY OF PRESCRIPTION DRUG MONITORING REPORT IN PATIENT KALINA: No Home Medications: Home Meds Levothyroxine 75 mcg PO ACBREAKFAST 10/16/20 [History] lisinopriL [Lisinopril] 2.5 mg PO DAILY 10/16/20 [History] Propranolol HCl 80 mg PO BID 10/17/20 [History] Forms: ED Department Discharge Referrals: Andreea Martin MD [Primary Care Provider] - - Discharge Summary/Plan Comment DC Time >30 min.: No Total # of Minutes for Discharge Time: 20 - General Info Date of Service: 10/18/20 Subjective Update: 59 yo female hospital day #3 admitted with SBO. Feels great this morning and would like to go home. Has been doing clear liquids with no issues. No abdominal pain, nausea, or vomiting. ROS otherwise negative. - Review of Systems General: Reports: No Symptoms HEENT: Reports: No Symptoms Pulmonary: Reports: No Symptoms Cardiovascular: Reports: No Symptoms Gastrointestinal: Reports: No Symptoms Genitourinary: Reports: No Symptoms Musculoskeletal: Reports: No Symptoms Skin: Reports: No Symptoms Neurological: Reports: No Symptoms - Patient Data Vitals - Most Recent: Last Vital Signs Temp 36.8 C 10/17/20 22:00 Pulse 52 L 10/18/20 06:00 Resp 16 10/18/20 06:00 BP 171/63 H 10/18/20 08:11 Pulse Ox 99 10/18/20 06:00 Weight - Most Recent: 52.163 kg I&O - Last 24 hours: Intake & Output 10/17/20 10/18/20 10/18/20 22:59 06:59 14:59 Intake Total 350 Balance 350 Lab Results - Last 24 hrs: Laboratory Results - last 24 hr 10/18/20 10/18/20 Range/Units 07:45 07:45 WBC 7.9 (4.0-10.0) x10^3/uL RBC 4.69 (4.00-5.50) x10^6/uL Hgb 14.6 (12.0-16.0) g/dL Hct 42.4 (33.0-47.0) % MCV 90.4 (78.0-93.0) fL MCH 31.1 (26.0-32.0) pg MCHC 34.4 (32.0-36.0) g/dL RDW Coeff of Marcie 12.8 (10.0-15.0) % Plt Count 256 (130-400) x10^3/uL Immature Gran % (Auto) 0.30 (0.00-0.43) % Neut % (Auto) 73.2 (50.0-80.0) % Lymph % (Auto) 18.2 L (25.0-50.0) % [place] % (Auto) 6.0 (2.0-11.0) % Eos % (Auto) 2.0 (0.0-4.0) % Baso % (Auto) 0.3 (0.2-1.2) % Neut # (Auto) 5.8 (1.8-7.7) x10^3/uL Lymph # (Auto) 1.4 (1.0-4.8) x10^3/uL [place] # (Auto) 0.5 (0.0-0.8) x10^3/uL Eos # (Auto) 0.2 (0.0-0.5) x10^3/uL Baso # (Auto) 0.0 (0.0-0.2) x10^3/uL Immature Gran # (Auto) 0.02 (0.00-0.07) x10^3/uL Sodium 134 L (136-145) mmol/L Potassium 4.0 (3.5-5.1) mmol/L Chloride 99 (98-107) mmol/L Carbon Dioxide 28 (21-32) mmol/L Anion Gap 11.0 (5-15) mmol/L BUN 6 L (7-18) mg/dL Creatinine 0.7 (0.55-1.02) mg/dL Est Cr Clr Drug Dosing 69.50 mL/min Estimated GFR (MDRD) > 60 Glucose 90 (70-99) mg/dL Calcium 8.5 (8.5-10.1) mg/dL Corrected Calcium 9.2 (8.5-10.1) mg/dL Total Bilirubin 1.2 H (0.2-1.0) mg/dL AST 18 (15-37) U/L ALT 16 (14-59) U/L Alkaline Phosphatase 86 (46-116) U/L C-Reactive Protein 3.4 H (<=0.9) mg/dL Total Protein 6.4 (6.4-8.2) g/dL Albumin 3.1 L (3.4-5.0) g/dL Globulin 3.3 Albumin/Globulin Ratio 0.94 MAU Results - Last 24 hrs: Microbiology 10/16/20 19:45 Urine Culture - Final Urine, Voided MIXED YEIMI DAY 2 Med Orders - Current: Current Medications Enoxaparin Sodium (Enoxaparin 40 Mg/0.4 Ml Syringe) 40 mg SUBCUT Q24H [facility] Last Admin: 10/17/20 19:59 Dose: Not Given Documented by: Flumazenil (Flumazenil 0.1 Mg/Ml 5 Ml Mdv) 0.2 mg IVPUSH ASDIRECTED PRN PRN Reason: Respiratory Depression Hydromorphone HCl (Hydromorphone 1 Mg/Ml Syringe) 0.5 mg IVPUSH Q3H PRN PRN Reason: Pain Last Admin: 10/17/20 00:01 Dose: 0.5 mg Documented by: Sodium Chloride (Normal Saline) 1,000 mls @ 125 mls/hr IV ASDIRECTED [facility] Last Admin: 10/16/20 23:53 Dose: 125 mls/hr Documented by: Levothyroxine Sodium (Levothyroxine 75 Mcg Tab) 75 mcg PO ACBREAKFAST [facility] Last Admin: 10/18/20 06:46 Dose: 75 mcg Documented by: Lisinopril (Lisinopril 2.5 Mg Tab) 2.5 mg PO DAILY [facility] Last Admin: 10/18/20 08:11 Dose: 2.5 mg Documented by: Lorazepam (Lorazepam 2 Mg/Ml Sdv) 0.5 mg IVPUSH Q4H PRN PRN Reason: Anxiety Metoclopramide HCl (Metoclopramide 10 Mg/2 Ml Sdv) 5 mg IVPUSH Q4H PRN PRN Reason: Nausea Metoprolol Tartrate (Metoprolol Tartrate 5 Mg/5 Ml Sdv) 2.5 mg IVPUSH Q4H PRN PRN Reason: Hypertension Ondansetron HCl (Ondansetron 4 Mg/2 Ml Sdv) 4 mg IVPUSH Q6H PRN PRN Reason: Nausea Propranolol HCl (Propranolol 20 Mg Tab) 80 mg PO BID [facility] Last Admin: 10/17/20 19:45 Dose: 80 mg Documented by: Sodium Chloride (Sodium Chloride 0.9% 10 Ml Syringe) 10 ml FLUSH ASDIRECTED PRN PRN Reason: Keep Vein Open Discontinued Medications Diphenhydramine HCl (Diphenhydramine 50 Mg/Ml Sdv) 25 mg IVPUSH ONETIME ONE Stop: 10/16/20 19:07 Last Admin: 10/16/20 19:35 Dose: 25 mg Documented by: Hydromorphone HCl (Hydromorphone 0.5 Mg/0.5 Ml Syringe) 0.5 mg IV ONETIME ONE Stop: 10/16/20 19:07 Last Admin: 10/16/20 19:33 Dose: 0.5 mg Documented by: Hydromorphone HCl (Hydromorphone 0.5 Mg/0.5 Ml Syringe) 0.5 mg IV ONETIME ONE Stop: 10/16/20 21:37 Last Admin: 10/16/20 21:42 Dose: 0.5 mg Documented by: Lactated Ringer's (Ringers, Lactated) 1,000 mls @ 999 mls/hr IV ONETIME ONE Stop: 10/16/20 20:06 Last Admin: 10/16/20 19:30 Dose: 999 mls/hr Documented by: Iopamidol (Iopamidol 612 Mg/Ml 100 Ml Bottle) 100 ml IVPUSH ONETIME ONE Stop: 10/16/20 20:06 Last Admin: 10/16/20 20:27 Dose: 100 ml Documented by: Lidocaine HCl (Lidocaine 2% Hcl 11 Ml Jelly Filled Syringe) 11 ml MUCMEM ONETIME ONE Stop: 10/16/20 20:50 Last Admin: 10/16/20 21:00 Dose: 11 ml Documented by: Non-Formulary Medication (Propranolol [Inderal La]) 80 mg PO BID [facility] Last Admin: 10/17/20 10:11 Dose: Not Given Documented by: Ondansetron HCl (Ondansetron 4 Mg/2 Ml Sdv) 4 mg IV ONETIME ONE Stop: 10/16/20 19:07 Last Admin: 10/16/20 19:31 Dose: 4 mg Documented by: - Exam General: Reports: Alert, Oriented, Cooperative, No Acute Distress HEENT: Reports: Mucous Membr. Moist/[place] Neck: Reports: Supple, Trachea Midline, No Thyromegaly. Denies: Lymphadenopathy Lungs: Reports: Clear to Auscultation, Normal Respiratory Effort Cardiovascular: Reports: Regular Rate, Regular Rhythm, No Murmurs GI/Abdominal Exam: Normal Bowel Sounds, Soft, Non-Tender, No Organomegaly, No D istention, No Mass Extremities: Normal Inspection, Non-Tender, No Pedal Edema, Normal Capillary Refill Skin: Reports: Warm, Dry, Intact
== END 2020-10-18 10:53 | disposition home or self-care (01) | DRG 389 ==
LOC: VM.ED 18:47 → VM.MS 21:10
PROVIDERS: ADMIT Internal Medicine; ATTEND Family Medicine
DX: K56.609 Unspecified intestinal obstruction, unspecified as to partial versus complete obstruction (principal); E87.1 Hypo-osmolality and hyponatremia; K55.1 Chronic vascular disorders of intestine; F41.9 Anxiety disorder, unspecified; I10 Essential (primary) hypertension; E03.9 Hypothyroidism, unspecified; F17.210 Nicotine dependence, cigarettes, uncomplicated; Z79.890 Hormone replacement therapy; Z79.899 Other long term (current) drug therapy; Z88.8 Allergy status to other drugs, medicaments and biological substances; I77.1 Stricture of artery; Z20.822 Contact with and (suspected) exposure to COVID-19
CPT/HCPCS: 36415; 74018; 74019; 74177; 80048; 80053; 80307; 81001; 83605; 83690; 83735; 84443; 85025; 86140; 87086; 96374; 96375; 99284; 99285-25; A9270-GY; J1170; J1200; J2405; J7030; J7120; Q9967; U0002